=== PATIENT | male | born 1955 | race Caucasian/White ===

== ENCOUNTER → 2018-01-21 | Outpatient (CLI) | payer BC | END | disposition home or self-care (01) | LOC: RADUSWWP 12:34 | PROVIDERS: ATTEND Podiatrist | DX: M79.662 Pain in left lower leg (principal); M79.661 Pain in right lower leg; I73.9 Peripheral vascular disease, unspecified | CPT/HCPCS: 93923 ==

== ENCOUNTER → 2023-10-17 | Outpatient (CLI) | payer MEDICARE ==
--- NOTE | 2023-10-18 10:07 | MR ---
EXAMINATION TYPE: MR lumbar spine wo con DATE OF EXAM: 10/17/2023 COMPARISON: None HISTORY: Low back pain into front of right thigh and into leg x3 weeks, lumbago CONTRAST: 0 mL intravenous Gadavist. TECHNIQUE: Multiplanar, multisequence images of the lumbar spine were acquired. FINDINGS: L5-S1: No significant disc bulge or disc herniation. No spinal canal stenosis. No foraminal stenosi s. Mild facet hypertrophy is present. Mild narrowing of the disc height may be present. L4-L5: There is mild disc bulge with anterior thecal sac flattening. No AP spinal canal stenosis pres ent No spinal canal stenosis. No foraminal stenosis. Mild posterior lateral thecal sac compression ligamentum flavum laxity is present. There is mild narrowing of the disc height. Disc desiccation is present. L3-L4: Anterior thecal sac flattening is present. Minimal disc bulge. No spinal canal stenosis. No f oraminal stenosis. . L2-L3: There is a large broad-based disc bulge with moderate anterior thecal sac compression. This is greater in the right paracentral region. Correlate with the radicular symptoms. May have contact wit h the exiting nerve root at the foramen opening. Mild right foraminal stenosis is present. L1-L2: No significant disc bulge or disc herniation. No spinal canal stenosis. No foraminal stenosi s. . T12-L1: No significant disc bulge or disc herniation. No spinal canal stenosis. No foraminal stenos is. . IMPRESSION: 1. Large central right paracentral disc herniation L2-3 with moderate anterior thecal sac compression . This may have compression and displacement of the exiting right L3 nerve root. Correlate with radic ular symptoms.
== END | disposition home or self-care (01) ==
LOC: RADMRIMAIN 20:30
PROVIDERS: ATTEND Family Medicine
DX: M51.16 Intervertebral disc disorders with radiculopathy, lumbar region (principal)
CPT/HCPCS: 72148